=== PATIENT | female | born 1965 | race Asian ===

== ENCOUNTER 2019-11-24 14:39 | Emergency (ER) | payer OTHER ==
[~2019-11-24] VITALS: Ht 165.1 cm; Wt 72.7 kg
[2019-11-24] MEDS ORDERED: LOSA25TA71 PO (15:04)
[2019-11-24 15:22] VITALS: BP 159/94
== END 2019-11-24 16:34 | disposition home or self-care (01) ==
LOC: EMS 14:43
DX: Z20.828 Contact with and (suspected) exposure to other viral communicable diseases (principal); I10 Essential (primary) hypertension
CPT/HCPCS: 87635